=== PATIENT | female | born 2000 | race African-American/Black ===

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

== ENCOUNTER 2020-01-24 17:13 | Emergency (ER) | payer MEDICAID ==
[~2020-01-24] VITALS: Ht 170.2 cm; Wt 145.4 kg
[~2020-01-24 17:13] MED LIST: SUCR1TAB34 PO
[2020-01-24 18:19] LABS: URINE HCG NEGATIVE (NEG)
[2020-01-24 18:24] LABS: CLARITY,URINE CLEAR (Clear); COLOR,URINE YELLOW (Yellow); GLUCOSE, URINE >=1000 mg/dl (Neg); KETONES,URINE NEGATIVE (Neg); LEUKOCYTE ESTERASE ,URINE NEGATIVE (Neg); NITRITES, URINE NEGATIVE (Neg); OCCULT BLOOD,URINE NEGATIVE (Neg); PROTEIN,URINE NEGATIVE (Neg); UROBILINOGEN,URINE 0.2 E.U/dL (0.2-1.0)
[2020-01-24 18:27] LABS: BASOPHILS # (AUTO) 0.1 X10'3 (0-0.2); BASOPHILS % (AUTO) 0.6 % (0-1); EOSINOPHILS # (AUTO) 0.1 X10'3 (0-0.9); EOSINOPHILS % (AUTO) 1.1 % (0-6); HEMATOCRIT 41.5 % (35.0-45.0); LYMPHOCYTES # (AUTO) 3.4 X10'3 (1.1-4.8); LYMPHOCYTES % (AUTO) 32.3 % (21-51); MEAN CORPUSCULAR HEMOGLOBIN 31.2 PG (27.0-31.0); MEAN CORPUSCULAR HGB CONC 33.7 g/dL (33.0-36.5); MEAN CORPUSCULAR VOLUME 92.6 FL (78-98); MEAN PLATELET VOLUME 9.2 FL (7.4-10.4); NEUTROPHILS # (AUTO) 5.8 X10'3 (1.8-7.7); PLATELET COUNT 366 X10'3 (140-440); RED BLOOD COUNT 4.48 X10'6 (4.20-5.60); RED CELL DISTRIBUTION WIDTH 12.9 % (11.5-14.5); WHITE BLOOD COUNT 10.4 X10'3 (4.5-11.0)
[2020-01-24 18:37] LABS: ALANINE AMINOTRANSFERASE 37 U/L (12-78); ALBUMIN 3.7 G/DL (3.4-5.0); ALBUMIN/GLOBULIN RATIO 0.9 (1.1-1.5); ALKALINE PHOSPHATASE 115 IU/L (20-180); ANION GAP 6 (8-16); ASPARTATE AMINO TRANSFERASE 15 U/L (10-37); BILIRUBIN,TOTAL 0.2 MG/DL (0.1-1.0); BLOOD UREA NITROGEN 11 MG/DL (7-18); BUN/CREATININE RATIO 14.3 (6.6-38.0); CALCIUM 9.1 MG/DL (8.5-10.1); CHLORIDE 106 MMOL/L (99-107); CREATININE 0.77 MG/DL (0.40-0.90); GLUCOSE 162 MG/DL (70-104); LIPASE 90 U/L (73-393); POTASSIUM 3.8 MMOL/L (3.5-5.1); SODIUM 137 MMOL/L (135-145); TOTAL CARBON DIOXIDE 24.8 MMOL/L (24-32); TOTAL PROTEIN 7.7 G/DL (6.4-8.2); eGFR > 90 ML/MIN
[2020-01-24 18:47] LABS: UA COLLECTION TYPE CLN CATCH MIDSTREAM
[2020-01-24 18:48] LABS: AMORPHOUS PHOSPHATES 1+; BACTERIA,URINE FEW /HPF (Neg); RBC,URINE NONE SEEN /HPF (0-2); SQUAMOUS EPITHELIAL CELL,UR FEW /LPF (FEW); WBC,URINE 0-4 /HPF (0-4)
--- NOTE | 2020-01-24 19:29 | NUR ---
abdominal exam cgaperoned with MD. Discoloration to upper epigastrium noted patietn denies any recent injury to abdomen report only having stomach ulcer.
[2020-01-24] MEDS ORDERED: LIDOcaine Viscous 15ml cup MM STA (20:44)
[2020-01-24] MEDS ORDERED: famotidine 10mg tablet PO STA (20:44)
[2020-01-24] MEDS ORDERED: mag hydrox/Alum hydrox/simeth 30ml oral suspension PO ONE (20:45)
[2020-01-24] MEDS ORDERED: ketorolac tromethamine 15mg/ml inj. IV ONE (20:45)
[2020-01-24] MEDS ORDERED: famotidine 20mg tablet PO STA (21:03)
[2020-01-24 22:18] VITALS: BP 124/88
--- NOTE | 2020-01-24 22:28 | NUR ---
DC HOME TORADOL EFFECTIVE FOR LEFT FLANK PAIN. PATIENT AGREES TO DC HOME AND VERBAIZED UNDERSTANDING OF DC INSTRUCTION ALL QUESTIONS ANSWERED
== END 2020-01-24 22:05 | disposition home or self-care (01) ==
LOC: ER 17:14
DX: N20.0 Calculus of kidney (principal); Z79.899 Other long term (current) drug therapy
CPT/HCPCS: 36415; 74176; 76700; 80053; 81001; 81025; 83690; 85025; 96374; 99285; J1885

== ENCOUNTER 2020-06-30 16:24 | Emergency (ER) | payer MEDICAID ==
[~2020-06-30] VITALS: Ht 170.2 cm; Wt 142.5 kg
[2020-06-30 17:54] VITALS: BP 128/94
== END 2020-06-30 17:49 | disposition home or self-care (01) ==
LOC: ER 16:25
DX: H92.02 Otalgia, left ear (principal); R11.0 Nausea; E11.9 Type 2 diabetes mellitus without complications; Z79.899 Other long term (current) drug therapy
CPT/HCPCS: 99282